=== PATIENT | female | born 1990 | race Caucasian/White ===

== ENCOUNTER 2025-08-07 08:24 | Inpatient (IN) ==
[2025-08-07] MEDS ORDERED: LIDOCAINE 1% LOCAL 20 ML VIAL INFIL PRN (09:36)
[2025-08-07] MEDS ORDERED: OXYTOCIN 30 UNITS/NSS 30 UNITS/500 ML BAG IV PRN (09:36)
--- NOTE | 2025-08-07 09:38 | History & Physical Report ---
Date of Service August 07, 2025 Assessment & Plan (1) Normal labor: Plan admit. Discussed expectant management vs. pitocin now. gbs neg. Wants expectant management now. Discussed consideration of augmentation if not making change in 6 hours. Fetus category one. Desires epidural. anticipate . History of Present Illness Chief Complaint: srom Primary Care Provider: Chloe Stuart MD Patient is a 34yowf with iup at 39 0/7 who presents with srom of clear fluid at 6:45 am. Notes some contractions. no vb. +fm. Patient has had no associated issues and no problem/plans list OB Labs: Blood Type O Positive 01/08/25 Antibody Screen NEGATIVE 01/08/25 Hgb 12.5 g/dl (12.0-16.0) 05/28/25 Hct 36.4 % (37.0-47.0) L 05/28/25 MCV 92.6 fL (80.0-100.0) 01/08/25 Plt Count 250 K/uL (130-400) 01/08/25 Rubella IgG Antibody Immune (Immune) 01/08/25 Treponema pallidum Ab Negative (Negative) 05/28/25 Hep Bs Antigen Negative (Negative) 01/08/25 Hepatitis C Antibody Negative (Negative) 01/08/25 HIV 1&2 Ab/P24 Ag 4thGn Negative (Negative) 01/08/25 Glucose 1 Hr 50 gm 108 mg/dl (70-130) 05/28/25 Maternal Serum AFP 76.7 ng/mL 03/05/25 OB Optional Labs: Chlamydia trachomatis RNA Not Detected (NotDetected) 01/08/25 Neisseria gonorrhoeae RNA Not Detected (NotDetected) 01/08/25 Alpha Fetoprotein Triple Screen SEE NOTE 03/05/25 Labs Reviewed: gbs neg afp neg panorama neg Allergies Allergy/AdvReac Type Severity Reaction Status Date / Time No Known Drug Allergies Allergy Verified 08/05/25 09:50 Home Medications Medication Instructions Recorded Confirmed Type citalopram 20 mg tablet 20 mg PO DAILY #90 tabs 01/01/25 08/05/25 Rx 21-iron fu-folic acid PO 01/01/25 08/05/25 History [ Complete] Patient History Medical History Myocarditis History of chicken pox Human papilloma virus Anxiety and depression IBS (irritable bowel syndrome) Surgical History 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 Denies family history of Ovarian cancer Myocardial infarction Uterine cancer Social History Smoking Status: Never smoker Second Hand Exposure: No; Do You Dip or Chew Tobacco: No; Hx Alcohol Use: No Hx Substance Use: No Preferred Language: Pashto Communication Ability: Effective Visual Impairment: No Limitations Hearing Ability: Normal Remediation Consultant Required: No Beliefs That Will Affect Care: None marital status: marital status details: Ted Colon (31) [phone] Current Living Situation: Spouse Current Living Situation Comment: lives with spouse, dog current occupational status: employed 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, 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 [employer] Feels Safe at Home: Yes Childhood Exposure to Second-Hand Smoke: No Diet: regular caffeine: Yes during the past year weight has: increased > 10 lbs Dental Care, Regularly: Yes Physical Activity Frequency: 3-4 Times per Week Seatbelt Use: always Sunscreen Use: Yes Assistive Devices: None OB History g1--present 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
[2025-08-07 10:06] LABS: Hematocrit (blood only) 34.4 % (37.0-47.0); Hemoglobin 11.7 g/dl (12.0-16.0); Mean Corpuscular Hemoglobin 31.5 pg (25.0-34.0); Mean Corpuscular Volume 92.5 fL (80.0-100.0); Platelet Count 159 K/uL (130-400); RDW Standard Deviation 43.0 fL (36.4-46.3); Red Blood Count 3.72 M/uL (4.20-5.40); White Blood Count 11.11 K/ul (4.8-10.8)
[2025-08-07] MEDS: LACTATED RINGER'S 1,000 ML IV PRN (12:28)
--- NOTE | 2025-08-07 12:53 | Labor Progress Brief Note ---
Date of Service August 07, 2025 Subjective Much more uncomfortable Assessment & Plan (1) Normal labor: Plan doing well. Will get epidural. fetus category one. Admission and Anticipated Discharge Date Admission Date: August 07, 2025 Physical Exam Physical Exam: cx--4/100/-2 toco--q2-4 efm--130s with mod variability, accels to 150s, no decels Results & Data Vital Signs (Past 12 Hours) Vital Signs Temp Pulse Resp BP Pulse Ox 08/07/25 12:29 37.0 C 08/07/25 11:22 62 96 08/07/25 11:18 64 92 08/07/25 11:17 67 95 08/07/25 11:12 96 08/07/25 11:12 60 08/07/25 11:12 61 94 08/07/25 11:07 63 96 08/07/25 11:03 62 93 08/07/25 11:02 64 95 08/07/25 11:01 64 118/81 08/07/25 10:57 60 97 08/07/25 10:53 59 L 94 08/07/25 10:52 62 96 08/07/25 10:47 58 L 96 08/07/25 10:31 55 L 111/70 08/07/25 10:30 37.0 C 08/07/25 08:40 37 C 16 08/07/25 08:36 65 126/87 Coding Level of Care Code None Diagnoses Normal labor O80; Z37.9
--- NOTE | 2025-08-07 13:27 | Anesthesiology Consultation ---
Date of Service August 07, 2025 Assessment & Plan Chart Review Chart Review: Acceptable Risk for Labor Epidural Consults Requested none ASA ASA2 Proposed Anesthesia Anesthesia Type: Labor Epidural Risk / Benefits Reviewed With: PT / POA / Parent / Guardian, Accepts Plan and Informed Consent Obtained History Height/Weight Height: 5 ft 3 in Weight: 77.111 kg Allergies Allergy/AdvReac Type Severity Reaction Status Date / Time No Known Allergies Allergy Verified 08/07/25 10:49 Medications Home Medications Medication Instructions Recorded Confirmed Last Taken citalopram 20 mg tablet 20 mg PO DAILY #90 tabs 01/01/25 08/07/25 08/07/25 07:45 1 tab PO DAILY 08/07/25 08/07/25 08/07/25 07:45 Active Medications Generic Name Dose Route Start Last Admin Trade Name Freq PRN Reason Stop Dose Admin Lactated Ringer's 1,000 mls @ 125 mls/hr 08/07/25 09:36 08/07/25 12:40 Lr IV 08/09/25 09:35 999 mls/hr .Q8H PRN Infusion L&D Protocol Protocol NPO Date Last Intake of Fluids: 08/07/25 Time Last Intake of Fluids: 11:00 Date Last Intake of Solids: 08/07/25 Time Last Intake of Solids: 07:00 Last Intake of Solids Comment: Cereal Past Medical History Medical History Myocarditis History of chicken pox Human papilloma virus Anxiety and depression IBS (irritable bowel syndrome) Exercise / Class Metabolic Activity II 4-5 Yardwork/Stairs/Walk up hill Past Family History Family History Mother Cancer skin Breast cancer, Onset Age: 59 Dyslipidemia Aunt Colorectal cancer, Onset Age: 60 Father Prostate cancer Renal cancer Dyslipidemia Uncle Diabetes Prostate cancer Grandmother (Paternal) Diabetes Grandfather (Paternal) Heart disease Brother No problems noted. 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 Hx of colposcopy with cervical biopsy [place] teeth removed Past Anesthesia History No Hx of Anesthesia Complications and No Family Hx of Anesthesia Complications History of PONV No Hx of PONV and No Hx of Motion Sickness Social History Smoking Status: Never smoker Do You Dip or Chew Tobacco: No Hx Alcohol Use: No Alcohol type: beer and hard liquor Hx Substance Use: No Physical Exam Vital Signs Last Vital Signs Temp 37.0 C 08/07/25 12:29 Pulse 65 08/07/25 13:21 Resp 16 08/07/25 08:40 BP 127/75 08/07/25 13:12 Pulse Ox 100 08/07/25 13:21 ENMT Mouth: no TMJ abnormality Thyromental Distance: > or= 3.5 Finger Breadths Mallampati Class: II Neck normal visual inspection and trachea midline; neck extension not limited Respiratory normal respiratory effort Auscultation: lungs clear to auscultation bilaterally Cardiovascular Rate/Rhythm: regular rate and regular rhythm Heart Sounds: no murmur Musculoskeletal Spine: normal cervical ROM Extremities: full ROM of extremities Neurologic moves all extremities Psychiatric Orientation: alert and oriented x 3 Testing Laboratory Results 08/07/25 09:48
[2025-08-07] MEDS: fentANYL 2 MCG/ML BUPIVacaine 0.125%-NSS 100ML BAG ONE (13:54)
[2025-08-07] MEDS: BUPIVACAINE 0.25% PF 30 ML VIAL ONE (13:54)
[2025-08-07] MEDS ORDERED: LIDOCAINE 2%/EPINEPHRINE 1:200,000 20 ML PF EPI STA (13:57)
[2025-08-07] MEDS ORDERED: NALOXONE HCL 0.4 MG/1 ML VIAL/CARP IV PRN (13:57)
[2025-08-07] MEDS ORDERED: NALOXONE HCL 1 MG in SODIUM CHLORIDE 0.9% 1,000 ML IV PRN (13:57)
[2025-08-07] MEDS ORDERED: BUPIVACAINE 0.25% PF 30 ML VIAL EPI STA (13:57)
[2025-08-07] MEDS ORDERED: BUPIVACAINE 0.25% PF 30 ML VIAL EPI PRN (13:57)
[2025-08-07] MEDS ORDERED: diphenhydrAMINE 50 MG/ML VIAL IV PRN (13:57)
[2025-08-07] MEDS ORDERED: SODIUM CHLORIDE 0.9% PF INJ 10 ML VIAL EPI STA (13:57)
[2025-08-07] MEDS ORDERED: NALBUPHINE HCL INJ 10 MG/ML AMP IV PRN (13:57)
[2025-08-07] MEDS ORDERED: SODIUM CHLORIDE 0.9% PF INJ 10 ML VIAL EPI PRN (13:57)
[2025-08-07] MEDS ORDERED: LIDOCAINE 2% MPF LOCAL 5 ML VIAL EPI PRN (13:57)
[2025-08-07] MEDS ORDERED: ROPIVACAINE 0.5% PF 5 MG/ML 20 ML VIAL EPI PRN (13:57)
[2025-08-07] MEDS: OXYTOCIN 30 UNITS/NSS 30 UNITS/500 ML BAG IV PRN (15:15)
--- NOTE | 2025-08-07 18:57 | Labor Progress Brief Note ---
Date of Service August 07, 2025 Subjective comfortable Assessment & Plan (1) Normal labor: Plan continue current management. fetus category one. anticipate . Admission and Anticipated Discharge Date Admission Date: August 07, 2025 Physical Exam Physical Exam: cx--ant lip/0 toco--q2-4, pit at 4 efm--130s with mod variability, accels to 150s, no decels Results & Data Vital Signs (Past 12 Hours) Vital Signs Temp Pulse Resp BP Pulse Ox 08/07/25 18:49 73 99 08/07/25 18:44 72 99 08/07/25 18:39 72 99 08/07/25 18:34 67 99 08/07/25 18:29 71 100 08/07/25 18:24 66 99 08/07/25 18:19 70 98 08/07/25 18:14 71 99 08/07/25 18:09 67 99 08/07/25 18:04 73 100 08/07/25 18:00 14 08/07/25 18:00 14 08/07/25 17:59 67 100 08/07/25 17:54 65 99 08/07/25 17:49 70 100 08/07/25 17:44 70 100 08/07/25 17:39 63 100 08/07/25 17:34 64 100 08/07/25 17:30 36.9 C 08/07/25 17:29 67 96 08/07/25 17:24 62 99 08/07/25 17:19 70 100 08/07/25 17:16 63 99 08/07/25 17:11 60 99 08/07/25 17:07 65 129/86 08/07/25 17:06 68 100 08/07/25 17:01 67 98 08/07/25 17:00 14 08/07/25 17:00 14 08/07/25 16:56 64 98 08/07/25 16:54 60 100/55 L 08/07/25 16:51 66 99 08/07/25 16:46 61 98 08/07/25 16:41 67 98 08/07/25 16:38 66 123/71 08/07/25 16:36 64 99 08/07/25 16:31 70 98 08/07/25 16:26 70 97 08/07/25 16:21 63 100/58 L 97 08/07/25 16:16 67 99 08/07/25 16:11 64 97 08/07/25 16:06 64 99/58 L 97 08/07/25 16:01 58 L 96 08/07/25 16:00 61 14 97/55 L 08/07/25 15:56 64 98 08/07/25 15:52 59 L 107/71 08/07/25 15:51 60 97 08/07/25 15:46 63 98 08/07/25 15:45 37.0 C 08/07/25 15:41 66 97 08/07/25 15:36 63 102/65 97 08/07/25 15:31 65 97 08/07/25 15:26 65 96 08/07/25 15:22 60 104/64 08/07/25 15:21 62 97 08/07/25 15:16 62 98 08/07/25 15:11 63 97 08/07/25 15:08 68 108/55 L 08/07/25 15:06 73 97 08/07/25 15:01 63 97 08/07/25 15:00 14 08/07/25 15:00 14 08/07/25 14:56 68 96 08/07/25 14:52 60 108/63 08/07/25 14:51 61 96 08/07/25 14:46 65 95 08/07/25 14:45 14 08/07/25 14:45 14 08/07/25 14:41 70 96 08/07/25 14:37 72 125/80 08/07/25 14:36 70 98 08/07/25 14:31 73 97 08/07/25 14:30 14 08/07/25 14:30 14 08/07/25 14:26 70 97 08/07/25 14:21 67 114/73 96 08/07/25 14:20 37.1 C 08/07/25 14:16 71 97 08/07/25 14:15 14 08/07/25 14:15 14 08/07/25 14:11 65 97 08/07/25 14:06 97 08/07/25 14:06 65 08/07/25 14:06 65 113/73 08/07/25 14:03 67 114/72 08/07/25 14:01 63 97 08/07/25 14:00 63 16 111/72 08/07/25 13:57 64 16 114/75 08/07/25 13:56 64 97 08/07/25 13:54 61 14 118/75 08/07/25 13:51 62 117/73 97 08/07/25 13:49 14 08/07/25 13:49 14 08/07/25 13:48 75 110/71 08/07/25 13:46 82 96 08/07/25 13:45 72 116/72 08/07/25 13:41 90 98 08/07/25 13:36 87 98 08/07/25 13:31 89 100 08/07/25 13:26 77 100 08/07/25 13:21 65 100 08/07/25 13:16 62 97 08/07/25 13:12 64 127/75 08/07/25 13:11 63 100 08/07/25 12:29 37.0 C 08/07/25 11:22 62 96 08/07/25 11:18 64 92 08/07/25 11:17 67 95 08/07/25 11:12 96 08/07/25 11:12 60 08/07/25 11:12 61 94 08/07/25 11:07 63 96 08/07/25 11:03 62 93 08/07/25 11:02 64 95 08/07/25 11:01 64 118/81 08/07/25 10:57 60 97 08/07/25 10:53 59 L 94 08/07/25 10:52 62 96 08/07/25 10:47 58 L 96 08/07/25 10:31 55 L 111/70 08/07/25 10:30 37.0 C 08/07/25 08:40 37 C 16 08/07/25 08:36 65 126/87 Coding Level of Care Code None Diagnoses Normal labor O80; Z37.9
[2025-08-07] MEDS: ONDANSETRON INJ 2 MG/ML 2 ML VIAL IV PRN (19:51)
[2025-08-07] MEDS: fentANYL 2 MCG/ML BUPIVacaine 0.125%-NSS 100ML BAG EPI PRN (20:34)
--- NOTE | 2025-08-08 00:06 | Labor Progress Brief Note ---
Date of Service August 08, 2025 Subjective pushing with good effort Assessment & Plan (1) Normal labor: (2) Failure of descent in labor, delivered, current hospitalization: Plan Discussed pros/cons of further labor. Discussed not at a point I can assist with a vacuum and with the significant caput, concern about application. Can continue to push but have been in second stage for close to 4 hours wtih 2+ in active pushing and with a good 30 minutes with me without descent of the vertex b/y +2. She is agreeable to c/s. consent reviewed and signed. Admission and Anticipated Discharge Date Admission Date: August 07, 2025 Physical Exam Physical Exam: cx--c/c/+2, caput is +3 with pushing, large toco--q2-4min, pit at 20 efm--120s with mod variability, accels present, no decels Results & Data Vital Signs (Past 12 Hours) Vital Signs Temp Pulse Resp BP Pulse Ox 08/08/25 00:00 87 88 L 08/07/25 23:55 107 H 96 08/07/25 23:52 106 H 84 L 08/07/25 23:50 75 98 08/07/25 23:45 70 98 08/07/25 23:41 78 108/74 08/07/25 23:40 82 98 08/07/25 23:35 72 98 08/07/25 23:30 68 98 08/07/25 23:26 76 103/71 08/07/25 23:25 74 98 08/07/25 23:20 72 98 08/07/25 23:15 88 93 08/07/25 23:11 76 110/68 08/07/25 23:09 69 98 08/07/25 23:04 73 96 08/07/25 23:00 20 08/07/25 23:00 37.5 C 20 08/07/25 22:59 86 97 08/07/25 22:57 77 119/79 08/07/25 22:55 87 88 L 08/07/25 22:54 103 H 95 08/07/25 22:49 72 97 08/07/25 22:47 82 88 L 08/07/25 22:44 77 98 08/07/25 22:41 67 130/83 08/07/25 22:39 69 98 08/07/25 22:34 74 98 08/07/25 22:29 76 94 08/07/25 22:27 74 108/57 L 08/07/25 22:24 76 96 08/07/25 22:19 70 95 08/07/25 22:14 74 97 08/07/25 22:11 75 108/59 L 08/07/25 22:09 75 96 08/07/25 22:08 75 94 08/07/25 22:04 74 94 08/07/25 22:03 75 94 08/07/25 21:59 73 95 08/07/25 21:58 75 94 08/07/25 21:56 71 98/56 L 08/07/25 21:54 72 95 08/07/25 21:49 72 96 08/07/25 21:44 76 96 08/07/25 21:41 70 97/53 L 08/07/25 21:39 72 97 08/07/25 21:35 18 08/07/25 21:35 37.0 C 18 08/07/25 21:34 82 98 08/07/25 21:31 88 92 08/07/25 21:29 77 98 08/07/25 21:27 80 105/60 08/07/25 21:24 76 98 08/07/25 21:19 85 99 08/07/25 21:14 98 08/07/25 21:14 85 93 08/07/25 21:12 86 116/59 L 08/07/25 21:09 79 97 08/07/25 21:07 94 H 94 08/07/25 21:04 78 99 08/07/25 20:59 80 85 L 08/07/25 20:54 83 98 08/07/25 20:53 76 89 L 08/07/25 20:49 70 97 08/07/25 20:47 79 79 L 08/07/25 20:44 84 99 08/07/25 20:42 96 H 129/73 08/07/25 20:39 75 96 08/07/25 20:37 88 91 08/07/25 20:34 83 97 08/07/25 20:31 87 91 08/07/25 20:29 90 99 08/07/25 20:27 90 122/75 08/07/25 20:24 89 99 08/07/25 20:19 80 99 08/07/25 20:14 78 99 08/07/25 20:11 70 128/81 08/07/25 20:09 75 99 08/07/25 20:04 78 100 08/07/25 19:59 70 98 08/07/25 19:57 76 119/74 08/07/25 19:54 77 99 08/07/25 19:52 77 94 08/07/25 19:49 71 99 08/07/25 19:44 70 98 08/07/25 19:42 75 115/75 08/07/25 19:39 71 99 08/07/25 19:34 80 100 08/07/25 19:29 82 99 08/07/25 19:27 78 148/79 H 08/07/25 19:24 83 99 08/07/25 19:19 76 99 08/07/25 19:14 71 99 08/07/25 19:11 68 139/81 08/07/25 19:10 36.9 C 18 08/07/25 19:10 18 08/07/25 19:10 36.9 C 18 08/07/25 19:09 68 100 08/07/25 19:04 73 99 08/07/25 18:59 67 98 08/07/25 18:54 68 99 08/07/25 18:49 73 99 08/07/25 18:44 72 99 08/07/25 18:39 72 99 08/07/25 18:34 67 99 08/07/25 18:29 71 100 08/07/25 18:24 66 99 08/07/25 18:19 70 98 08/07/25 18:14 71 99 08/07/25 18:09 67 99 08/07/25 18:04 73 100 08/07/25 18:00 14 08/07/25 18:00 14 08/07/25 17:59 67 100 08/07/25 17:54 65 99 08/07/25 17:49 70 100 08/07/25 17:44 70 100 08/07/25 17:39 63 100 08/07/25 17:34 64 100 08/07/25 17:30 36.9 C 08/07/25 17:29 67 96 08/07/25 17:24 62 99 08/07/25 17:19 70 100 08/07/25 17:16 63 99 08/07/25 17:11 60 99 08/07/25 17:07 65 129/86 08/07/25 17:06 68 100 08/07/25 17:01 67 98 08/07/25 17:00 14 08/07/25 17:00 14 08/07/25 16:56 64 98 08/07/25 16:54 60 100/55 L 08/07/25 16:51 66 99 08/07/25 16:46 61 98 08/07/25 16:41 67 98 08/07/25 16:38 66 123/71 08/07/25 16:36 64 99 08/07/25 16:31 70 98 08/07/25 16:26 70 97 08/07/25 16:21 63 100/58 L 97 08/07/25 16:16 67 99 08/07/25 16:11 64 97 08/07/25 16:06 64 99/58 L 97 08/07/25 16:01 58 L 96 08/07/25 16:00 61 14 97/55 L 08/07/25 15:56 64 98 08/07/25 15:52 59 L 107/71 08/07/25 15:51 60 97 08/07/25 15:46 63 98 08/07/25 15:45 37.0 C 08/07/25 15:41 66 97 08/07/25 15:36 63 102/65 97 08/07/25 15:31 65 97 08/07/25 15:26 65 96 08/07/25 15:22 60 104/64 08/07/25 15:21 62 97 08/07/25 15:16 62 98 08/07/25 15:11 63 97 08/07/25 15:08 68 108/55 L 08/07/25 15:06 73 97 08/07/25 15:01 63 97 08/07/25 15:00 14 08/07/25 15:00 14 08/07/25 14:56 68 96 08/07/25 14:52 60 108/63 08/07/25 14:51 61 96 08/07/25 14:46 65 95 08/07/25 14:45 14 08/07/25 14:45 14 08/07/25 14:41 70 96 08/07/25 14:37 72 125/80 08/07/25 14:36 70 98 08/07/25 14:31 73 97 08/07/25 14:30 14 08/07/25 14:30 14 08/07/25 14:26 70 97 08/07/25 14:21 67 114/73 96 08/07/25 14:20 37.1 C 08/07/25 14:16 71 97 08/07/25 14:15 14 08/07/25 14:15 14 08/07/25 14:11 65 97 08/07/25 14:06 97 08/07/25 14:06 65 08/07/25 14:06 65 113/73 08/07/25 14:03 67 114/72 08/07/25 14:01 63 97 08/07/25 14:00 63 16 111/72 08/07/25 13:57 64 16 114/75 08/07/25 13:56 64 97 08/07/25 13:54 61 14 118/75 08/07/25 13:51 62 117/73 97 08/07/25 13:49 14 08/07/25 13:49 14 08/07/25 13:48 75 110/71 08/07/25 13:46 82 96 08/07/25 13:45 72 116/72 08/07/25 13:41 90 98 08/07/25 13:36 87 98 08/07/25 13:31 89 100 08/07/25 13:26 77 100 08/07/25 13:21 65 100 08/07/25 13:16 62 97 08/07/25 13:12 64 127/75 08/07/25 13:11 63 100 08/07/25 12:29 37.0 C Coding Level of Care Code None Diagnoses Normal labor O80; Z37.9 Failure of descent in labor, delivered, current hospitalization O62.2
[2025-08-08] MEDS: CITRIC ACID/SODIUM CITRATE 15 ML UDC PO SCH (00:35)
[2025-08-08] MEDS: ACETAMINOPHEN 500 MG TAB PO SCH (00:35)
[2025-08-08] MEDS ORDERED: LIDOCAINE 2%/EPINEPHRINE 1:200,000 20 ML PF ONE (00:37)
[2025-08-08] MEDS: AZITHROMYCIN 500 MG/255 ML BAG IV SCH (00:41)
[2025-08-08] MEDS ORDERED: PHENYLEPHRINE 100MCG/ML 5ML SYR ONE (01:03)
[2025-08-08] MEDS ORDERED: OXYTOCIN 10 UNITS/ML VIAL ONE (01:03)
[2025-08-08] MEDS ORDERED: LACTATED RINGER'S 1,000 ML IV SCH (01:15)
[2025-08-08] MEDS ORDERED: MoRPHine SULFATE PF 1 MG/ML 10 ML AMP/VIAL ONE (01:30)
[2025-08-08 01:32] LABS: Base Excess Cord Arterial Bld -2.8 mEq/L (-9-1.8); CO2 Cord Arterial Blood 56 mmHg (39.1-73.5); HCO3 Cord Arterial Blood 25 mmol/L (19.7-28.5); PO2 Cord Arterial Blood < 20 mmHg (4.1-31.7); pH Cord Arterial Blood 7.26 (7.1-7.38)
[2025-08-08 01:34] LABS: Base Excess Cord Venous Blood -2.3 mEq/L (-7.7-1.9); Cord Venous Blood PO2 < 20 mmHg (14.1-43.3); O2 Saturation Cord Venous Bld < 60.0 % (<68)
[2025-08-08] MEDS ORDERED: HYDROCORTISONE ACETATE 25 MG SUPP PR PRN (01:44)
[2025-08-08] MEDS ORDERED: BENZOCAINE 20% SPRY 85 APPLN/85 GM CAN EXT PRN (01:44)
[2025-08-08] MEDS ORDERED: CALCIUM CARBONATE 500 MG CHEWABLE TAB PO PRN (01:44)
[2025-08-08] MEDS ORDERED: SENNA 8.6 MG TAB PO PRN (01:44)
--- NOTE | 2025-08-08 01:50 | Anesthesia Procedure Note ---
Date of Service August 08, 2025 Anesthesia Post Epidural Note Vital Signs Vital Signs: Temp Pulse Resp BP Pulse Ox 37.5 C 75 20 99/58 L 97 08/07/25 23:00 08/08/25 01:46 08/07/25 23:00 08/08/25 01:41 08/08/25 01:46 Pain Intensity Lower Abdomen: Pain Intensity: 2 Notes Mental Status: alert / awake / arousable Nausea / Vomiting: adequately controlled Pain: adequately controlled Airway Patency, RR, SpO2: stable & adequate BP & HR: stable & adequate Hydration State: stable & adequate Neuraxial Anesthesia: was administered and sensory block is resolving Anesthetic Complications: no major complications apparent and Pt Satisfied with anesthetic care Epidural: Removed without complications and With tip intact
--- NOTE | 2025-08-08 01:50 | Operative Report ---
PG Post Operative Report Pre & Post Diagnosis Operation Date: 08/08/25 00:30 Pre-Op Diagnosis: at 39 weeks Failure to descend Post-Op Diagnosis: at 39 weeks Failure to descend I identified the patient and participated in the time-out.: Yes Procedure Operation Date: 08/08/25 00:30 Actual Procedures p Primary low transverse Section. Live girl @ 0100 - Shayna Alfonso MD, FACOG Surgeon Shayna Alfonso MD, FACOG Tool Maker Apprentice Ugo Douglas RN Estimated Blood Loss 543 Findings Consistent with Post-Op Diagnosis viable female infant, direct OP, apgars 7/8. Normal uterus/tubes/ovs Fluids ivf--800cc uop--50cc, concentrated and blood tinged Specimens none Drains perry Anesthesia Type Labor Epidural Complications none Disposition Accompanied Patient To Recovery: No Disposition: L&D Indications 24yowf with iup at 39 weeks, srom. progressed and pushed for over two hours with no descent Description of Procedure The patient was taken to the operating room where she was identified verbally and by bracelet. She was then placed in the supine position with a leftward tilt. A Perry catheter had been placed sterilely. the epidural had been dosed. the patient was prepped and draped in a normal standard fashion. the anesthetic was tested and found to be adequate. A time-out was held, identifying correct patient, procedure, positioning and preoperative antibiotics. There were no concerns. A Pfannenstiel skin incision was made with a knife and taken down to the underlying layer of fascia with the knife and Bovie electrocautery. Bleeding was attended to with the Bovie. The fascia was incised in the midline with the knife and taken out laterally with scissors. The superior edge of the fascial incision was grasped, elevated and the underlying layer of rectus muscle was taken off bluntly and with scissors. In a similar fashion, the inferior edge of the fascial incision was grasped, elevated and the underlying layer of rectus muscle was taken off bluntly and with scissors. The muscles were bluntly in the midline. The peritoneum was entered bluntly. The incision was then stretched. The bladder blade was placed. The vesicouterine peritoneum was identified, entered with scissors and taken out laterally with scissors. The bladder flap was created digitally A hysterotomy incision was scored with a knife and the incision was stretched superiorly and inferiorly with the water gas operator's fingers. Fluid was clear. The operators hand was placed into the incision and the head was delivered atraumatically. The baby was in direct op position and wedged into the pelvis. No nuchal cord. The rest of the infant was then delivered without difficulty. The nose and mouth were again bulb suctioned. The cord was clamped and cut and the infant was then handed off to the awaiting sailmaker for drying and attention. Cord blood and segment were obtained. Apgars 7/8. The placenta was Manually extracted. The uterus was exteriorized and cleared of all clot and debris with moistened laparotomy sponges. The hysterotomy incision was identified with T-clamps was repaired in two layers, the first in a running locked layer, the second in an imbricating layer. There were no extensions. Hemostasis was noted to be good. Posterior cul-de-sac was irrigated and cleared of all clot and debris. The hysterotomy incision was again inspected and found to be hemostatic. the uterus was reinteriorized. Hysterotomy incision was again inspected and found to be hemostatic. The fascia was then reapproximated with 0 Vicryl starting at the edges and meeting in the midline. The subcuticular tissues were copiously irrigated and bleeding was attended to with cautery. The skin was then closed with 4-0 Vicryl in a subcuticular fashion. A ll sponge ,lap and needle counts were correct x 2. The patient tolerated the procedure well and she was taken to recovery in stable condition. I attest to the content of the Intraoperative Record and any orders documented therein. Any exceptions are noted below. OB Procedure Charges 91473
[2025-08-08] MEDS: OXYTOCIN 20 UNITS/1002ML LR IV ONE (01:56)
[2025-08-08] MEDS: DIPHTHER/TETAN/PERTUS Vaccine (Tdap, Adol/Adult) 0.5mL IM ONE (02:19)
[2025-08-08] MEDS: OXYTOCIN 20 UNITS/LR 1,002 ML IV SCH (02:19)
[2025-08-08] MEDS: KETOROLAC 30 MG/ML VIAL IV SCH (02:20)
[2025-08-08] MEDS ORDERED: NALBUPHINE HCL INJ 10 MG/ML AMP IV PRN (03:51)
[2025-08-08] MEDS ORDERED: KETOROLAC 30 MG/ML VIAL IV PRN (03:51)
[2025-08-08] MEDS ORDERED: ACETAMINOPHEN 1,000 MG/100 ML VIAL IV PRN (03:51)
[2025-08-08] MEDS ORDERED: NALOXONE HCL 1 MG in SODIUM CHLORIDE 0.9% 1,000 ML IV PRN (03:51)
[2025-08-08] MEDS ORDERED: MoRPHine SULFATE 4 MG/ML 1 ML CARP\\VIAL IV PRN (03:51)
[2025-08-08] MEDS ORDERED: ONDANSETRON INJ 2 MG/ML 2 ML VIAL IV PRN ×2 (03:51→21:51)
[2025-08-08] MEDS ORDERED: diphenhydrAMINE 50 MG/ML VIAL IV PRN ×2 (03:51→21:51)
[2025-08-08] MEDS ORDERED: MoRPHine SULFATE PF 1 MG/ML 10 ML AMP/VIAL INT SPINAL ONE (03:51)
[2025-08-08] MEDS ORDERED: LACTATED RINGER'S 500 ML IV PRN (03:51)
[2025-08-08] MEDS ORDERED: NALOXONE HCL 0.08 MG in SYRINGE 1.8 ML IV PRN (03:51)
[2025-08-08] MEDS ORDERED: HYDROmorphone INJ 0.5 MG/0.5 ML SYR IV PRN ×2 (03:51→21:51)
[2025-08-08] MEDS ORDERED: PROMETHAZINE 6.25 MG/50.25 ML BAG IV PRN (03:51)
[2025-08-08] MEDS ORDERED: NALOXONE HCL 0.4 MG/1 ML VIAL/CARP IV PRN (03:51)
[2025-08-08] MEDS ORDERED: MEPERIDINE HCL 25 MG/ML CARP/VIAL IV PRN (03:51)
[2025-08-08] MEDS ORDERED: NO NARCOTICS OR SEDATIVES SCH (04:00)
[2025-08-08] MEDS ORDERED: DC INTRASPINAL MORPHINE SCH (04:00)
[2025-08-08] MEDS: LIDOCAINE 2%/EPINEPHRINE 1:200,000 20 ML PF ONE (04:29)
[2025-08-08] MEDS: SODIUM CHLORIDE 0.9% PF INJ 10 ML VIAL ONE (04:30)
[2025-08-08] MEDS: LACTATED RINGER'S 1,000 ML IV SCH ×2 (04:30)
--- NOTE | 2025-08-08 05:13 | Anesthesiology Progress Note ---
Date of Service August 08, 2025 Anesthesia Post Procedure Vital Signs Vital Signs: Temp Pulse Resp BP Pulse Ox 08/08/25 03:46 75 96 08/08/25 03:41 37.1 C 18 08/08/25 03:41 71 110/68 97 08/08/25 03:36 66 97 08/08/25 03:32 69 117/75 08/08/25 03:31 70 96 08/08/25 03:26 87 96 08/08/25 03:21 69 117/72 97 08/08/25 03:16 70 97 08/08/25 03:12 68 114/63 08/08/25 03:11 37.1 C 18 08/08/25 03:11 69 97 08/08/25 03:06 70 96 08/08/25 03:01 96 08/08/25 03:01 74 08/08/25 03:01 72 106/59 L 08/08/25 02:56 68 97 08/08/25 02:54 73 114/64 08/08/25 02:51 77 97 08/08/25 02:46 78 97 08/08/25 02:41 37.1 C 18 08/08/25 02:41 63 118/72 98 08/08/25 02:36 37.1 C 18 08/08/25 02:36 70 98 08/08/25 02:31 37.1 C 18 08/08/25 02:31 67 118/73 98 08/08/25 02:26 66 98 08/08/25 02:21 37.1 C 18 08/08/25 02:21 99 08/08/25 02:21 66 08/08/25 02:21 66 121/75 08/08/25 02:16 64 96 08/08/25 02:11 37.1 C 18 08/08/25 02:11 65 117/70 98 08/08/25 02:06 66 96 08/08/25 02:02 65 112/68 08/08/25 02:01 37.1 C 18 08/08/25 02:01 66 97 08/08/25 01:56 67 97 08/08/25 01:51 37.1 C 18 08/08/25 01:51 92 08/08/25 01:51 77 08/08/25 01:51 76 94/54 L 91 08/08/25 01:46 75 97 08/08/25 01:41 37.1 C 18 08/08/25 01:41 75 99/58 L 97 08/08/25 00:40 78 98 08/08/25 00:35 92 H 96 08/08/25 00:30 71 96 08/08/25 00:25 120 H 96 08/08/25 00:20 77 97 08/08/25 00:15 84 94 08/08/25 00:10 83 96 08/08/25 00:05 94 H 96 08/08/25 00:00 87 88 L 08/07/25 23:55 107 H 96 08/07/25 23:52 106 H 84 L 08/07/25 23:50 75 98 08/07/25 23:45 70 98 08/07/25 23:41 78 108/74 08/07/25 23:40 82 98 08/07/25 23:35 72 98 08/07/25 23:30 68 98 08/07/25 23:26 76 103/71 08/07/25 23:25 74 98 08/07/25 23:20 72 98 08/07/25 23:15 88 93 08/07/25 23:11 76 110/68 08/07/25 23:09 69 98 08/07/25 23:04 73 96 08/07/25 23:00 20 08/07/25 23:00 37.5 C 20 08/07/25 22:59 86 97 08/07/25 22:57 77 119/79 08/07/25 22:55 87 88 L 08/07/25 22:54 103 H 95 08/07/25 22:49 72 97 08/07/25 22:47 82 88 L 08/07/25 22:44 77 98 08/07/25 22:41 67 130/83 08/07/25 22:39 69 98 08/07/25 22:34 74 98 08/07/25 22:29 76 94 08/07/25 22:27 74 108/57 L 08/07/25 22:24 76 96 08/07/25 22:19 70 95 08/07/25 22:14 74 97 08/07/25 22:11 75 108/59 L 08/07/25 22:09 75 96 08/07/25 22:08 75 94 08/07/25 22:04 74 94 08/07/25 22:03 75 94 08/07/25 21:59 73 95 08/07/25 21:58 75 94 08/07/25 21:56 71 98/56 L 08/07/25 21:54 72 95 08/07/25 21:49 72 96 08/07/25 21:44 76 96 08/07/25 21:41 70 97/53 L 08/07/25 21:39 72 97 08/07/25 21:35 18 08/07/25 21:35 37.0 C 18 08/07/25 21:34 82 98 08/07/25 21:31 88 92 08/07/25 21:29 77 98 08/07/25 21:27 80 105/60 08/07/25 21:24 76 98 08/07/25 21:19 85 99 08/07/25 21:14 98 08/07/25 21:14 85 93 08/07/25 21:12 86 116/59 L 08/07/25 21:09 79 97 08/07/25 21:07 94 H 94 08/07/25 21:04 78 99 08/07/25 20:59 80 85 L 08/07/25 20:54 83 98 08/07/25 20:53 76 89 L 08/07/25 20:49 70 97 08/07/25 20:47 79 79 L 08/07/25 20:44 84 99 08/07/25 20:42 96 H 129/73 08/07/25 20:39 75 96 08/07/25 20:37 88 91 08/07/25 20:34 83 97 08/07/25 20:31 87 91 08/07/25 20:29 90 99 08/07/25 20:27 90 122/75 08/07/25 20:24 89 99 08/07/25 20:19 80 99 08/07/25 20:14 78 99 08/07/25 20:11 70 128/81 08/07/25 20:09 75 99 08/07/25 20:04 78 100 08/07/25 19:59 70 98 08/07/25 19:57 76 119/74 08/07/25 19:54 77 99 08/07/25 19:52 77 94 08/07/25 19:49 71 99 08/07/25 19:44 70 98 08/07/25 19:42 75 115/75 08/07/25 19:39 71 99 08/07/25 19:34 80 100 08/07/25 19:29 82 99 08/07/25 19:27 78 148/79 H 08/07/25 19:24 83 99 08/07/25 19:19 76 99 08/07/25 19:14 71 99 08/07/25 19:11 68 139/81 08/07/25 19:10 36.9 C 18 08/07/25 19:10 18 08/07/25 19:10 36.9 C 18 08/07/25 19:09 68 100 08/07/25 19:04 73 99 08/07/25 18:59 67 98 08/07/25 18:54 68 99 08/07/25 18:49 73 99 08/07/25 18:44 72 99 08/07/25 18:39 72 99 08/07/25 18:34 67 99 08/07/25 18:29 71 100 08/07/25 18:24 66 99 08/07/25 18:19 70 98 08/07/25 18:14 71 99 08/07/25 18:09 67 99 08/07/25 18:04 73 100 08/07/25 18:00 14 08/07/25 18:00 14 08/07/25 17:59 67 100 08/07/25 17:54 65 99 08/07/25 17:49 70 100 08/07/25 17:44 70 100 08/07/25 17:39 63 100 08/07/25 17:34 64 100 08/07/25 17:30 36.9 C 08/07/25 17:29 67 96 08/07/25 17:24 62 99 08/07/25 17:19 70 100 08/07/25 17:16 63 99 08/07/25 17:11 60 99 08/07/25 17:07 65 129/86 08/07/25 17:06 68 100 08/07/25 17:01 67 98 08/07/25 17:00 14 08/07/25 17:00 14 08/07/25 16:56 64 98 08/07/25 16:54 60 100/55 L 08/07/25 16:51 66 99 08/07/25 16:46 61 98 08/07/25 16:41 67 98 08/07/25 16:38 66 123/71 08/07/25 16:36 64 99 08/07/25 16:31 70 98 08/07/25 16:26 70 97 08/07/25 16:21 63 100/58 L 97 08/07/25 16:16 67 99 08/07/25 16:11 64 97 08/07/25 16:06 64 99/58 L 97 08/07/25 16:01 58 L 96 08/07/25 16:00 61 14 97/55 L 08/07/25 15:56 64 98 08/07/25 15:52 59 L 107/71 08/07/25 15:51 60 97 08/07/25 15:46 63 98 08/07/25 15:45 37.0 C 08/07/25 15:41 66 97 08/07/25 15:36 63 102/65 97 08/07/25 15:31 65 97 08/07/25 15:26 65 96 08/07/25 15:22 60 104/64 08/07/25 15:21 62 97 08/07/25 15:16 62 98 08/07/25 15:11 63 97 08/07/25 15:08 68 108/55 L 08/07/25 15:06 73 97 08/07/25 15:01 63 97 08/07/25 15:00 14 08/07/25 15:00 14 08/07/25 14:56 68 96 08/07/25 14:52 60 108/63 08/07/25 14:51 61 96 08/07/25 14:46 65 95 08/07/25 14:45 14 08/07/25 14:45 14 08/07/25 14:41 70 96 08/07/25 14:37 72 125/80 08/07/25 14:36 70 98 08/07/25 14:31 73 97 08/07/25 14:30 14 08/07/25 14:30 14 08/07/25 14:26 70 97 08/07/25 14:21 67 114/73 96 08/07/25 14:20 37.1 C 08/07/25 14:16 71 97 08/07/25 14:15 14 08/07/25 14:15 14 08/07/25 14:11 65 97 08/07/25 14:06 97 08/07/25 14:06 65 08/07/25 14:06 65 113/73 08/07/25 14:03 67 114/72 08/07/25 14:01 63 97 08/07/25 14:00 63 16 111/72 08/07/25 13:57 64 16 114/75 08/07/25 13:56 64 97 08/07/25 13:54 61 14 118/75 08/07/25 13:51 62 117/73 97 08/07/25 13:49 14 08/07/25 13:49 14 08/07/25 13:48 75 110/71 08/07/25 13:46 82 96 08/07/25 13:45 72 116/72 08/07/25 13:41 90 98 08/07/25 13:36 87 98 08/07/25 13:31 89 100 08/07/25 13:26 77 100 08/07/25 13:21 65 100 08/07/25 13:16 62 97 08/07/25 13:12 64 127/75 08/07/25 13:11 63 100 08/07/25 12:29 37.0 C 08/07/25 11:22 62 96 08/07/25 11:18 64 92 08/07/25 11:17 67 95 08/07/25 11:12 96 08/07/25 11:12 60 08/07/25 11:12 61 94 08/07/25 11:07 63 96 08/07/25 11:03 62 93 08/07/25 11:02 64 95 08/07/25 11:01 64 118/81 08/07/25 10:57 60 97 08/07/25 10:53 59 L 94 08/07/25 10:52 62 96 08/07/25 10:47 58 L 96 08/07/25 10:31 55 L 111/70 08/07/25 10:30 37.0 C 08/07/25 08:40 37 C 16 08/07/25 08:36 65 126/87 Pain Intensity Lower Abdomen: Pain Intensity: 4 Transfer of Care Handoff Completed per policy Notes Mental Status: alert / awake / arousable and participated in evaluation Nausea / Vomiting: adequately controlled Pain: adequately controlled Airway Patency, RR, SpO2: stable & adequate BP & HR: stable & adequate Hydration State: stable & adequate Neuraxial Anesthesia: was administered and sensory block is resolving Anesthetic Complications: no major complications apparent and Pt Satisfied with anesthetic care
[2025-08-08] MEDS: DOCUSATE SODIUM 100 MG CAP PO SCH (07:29)
[2025-08-08] MEDS: SIMETHICONE 80 MG CHEW PO SCH (07:29)
[2025-08-08] MEDS: CITALOPRAM 20 MG TAB PO SCH (07:29)
[2025-08-08] MEDS: ACETAMINOPHEN 325 MG TAB PO SCH (07:29)
[2025-08-08] MEDS: FERROUS SULFATE 325 MG TAB PO SCH (07:36)
[2025-08-08] MEDS: PRENATAL VITAMIN 1 TAB PO SCH (07:36)
[2025-08-08] MEDS: LACTATED RINGER'S 1,000 ML IV ONE (08:15)
[2025-08-08] MEDS ORDERED: PROMETHAZINE 12.5 MG/50.5 ML BAG IV PRN (21:51)
[2025-08-08] MEDS ORDERED: diphenhydrAMINE Capsule 25 MG CAP PO PRN (21:51)
[2025-08-08] MEDS: SODIUM CHLORIDE 0.9% 1,000 ML IV SCH (22:24)
[2025-08-09] MEDS ORDERED: KETOROLAC 30 MG/ML VIAL IV PRN (01:42)
[2025-08-09] MEDS: IBUPROFEN 600 MG TAB PO SCH (02:00)
[2025-08-09 06:24] LABS: Hematocrit (blood only) 26.3 % (37.0-47.0); Hemoglobin 8.7 g/dl (12.0-16.0); Immature Granulocytes # (auto) 0.10 K/uL (0.01-0.20); Immature Granulocytes % (auto) 0.8 %; Mean Corpuscular Hemoglobin 32.3 pg (25.0-34.0); Mean Corpuscular Volume 97.8 fL (80.0-100.0); Platelet Count 121 K/uL (130-400); RDW Standard Deviation 47.8 fL (36.4-46.3); Red Blood Count 2.69 M/uL (4.20-5.40); White Blood Count 12.93 K/ul (4.8-10.8)
--- NOTE | 2025-08-09 07:17 | Obstetrical Progress Note ---
Date of Service August 09, 2025 Assessment & Plan (1) Failure of descent in labor, delivered, current hospitalization: Plan Doing well. continue routine pp/pod care. Day #:: 2 Subjective Ambulation: ambulating normally Voiding: no voiding problems Passing Gas:: Yes Diet Tolerance:: regular diet Lochia:: Small Feeding Type:: breast feeding Pain controlled Physical Exam Cardiovascular Extremities: + edema (tr); no calf tenderness Gastrointestinal (Abdomen) soft, nt, nd, ff/nt at u incision c/d/i Psychiatric A+Ox3, euthymic affect Results & Data Vital Signs (Past 12 Hours) Vital Signs Temp Pulse Resp BP Pulse Ox O2 Del Method 08/09/25 02:00 36.6 C 68 16 109/71 96 Room Air 08/08/25 22:00 16 96 08/08/25 21:00 16 97 08/08/25 20:15 36.6 C 68 18 120/79 98 Room Air 08/08/25 20:00 16 99
[2025-08-09 23:31] VITALS: RESP 16
[2025-08-10 06:46] LABS: Hematocrit (blood only) 26.4 % (37.0-47.0); Hemoglobin 8.5 g/dl (12.0-16.0)
--- NOTE | 2025-08-10 07:39 | Obstetrical Progress Note ---
Date of Service August 10, 2025 Assessment & Plan (1) care and examination: Plan: 34yo post-op day 2 s/p section Fells well today. Vital signs stable Continue post- care Encourage ambulation and Pain controlled with Ibuprofen, Tylenol Vitals and Hgb stable Bowel regimen as needed Discharge home today, follow up with OB provider in 6 weeks. Admission and Anticipated Discharge Date Admission Date: August 07, 2025 Supervising Physician Co-Signing Physician Notes Patient seen with resident and agree with the above findings plan. Stable for discharge as preferred Subjective 34yo post-op day 2 s/p section Ambulation: Ambulating normally Voiding: No voiding problems Passing Gas:: Yes Diet Tolerance:: regular diet Lochia:: Small Feeding Type:: Current Pain Level: 3/10 controlled with Tylenol, Ibuprofen Resting comfortably this AM in NAD. Denies DOUGLASS, CP, SOB, N/V/D, LE pain/swelling. Physical Exam Physical Exam: General: patient resting comfortably, NAD, non-toxic in appearance, answers questions appropriately Skin: warm, dry, intact Heart: S1/S2 heard, regular, no m/r/g Lungs: equal air entry bilaterally, no rales/rhonchi/wheezes Abd: Normoactive BS, soft, NT/ND, uterine fundus firm below umbilicus, incision clean, dry, and intact Ext: warm, no clubbing/cyanosis or edema, Tosin's neg Neuro: nonfocal, patient AAOx4, speech intact, no facial droop, moving all extremities on command Results & Data Vital Signs (Past 12 Hours) Vital Signs Temp Pulse Resp BP Pulse Ox O2 Del Method 08/09/25 23:30 36.4 C L 73 16 125/80 95 Room Air 08/09/25 20:16 36.5 C 82 18 124/77 97 Room Air Resident Activity Tracking Resident Involvement: Resident Care Provided Care Provided: OB Delivery
[2025-08-10] MEDS: IBUPROFEN 600 MG TAB PO PRN (08:00)
[2025-08-10] MEDS: ACETAMINOPHEN 325 MG TAB PO PRN (08:01)
[2025-08-10 08:33] VITALS: BP 134/86; PULSE 65; TEMP 98.1; O2SAT 96
[2025-08-10] MEDS: MAGNESIUM HYDROXIDE SUSP 30 ML UDC PO PRN (10:36)
--- NOTE | 2025-08-11 12:56 | Discharge Summary ---
Date of Service August 11, 2025 Admission HPI Per Admitting Provider Patient is a 34yowf with iup at 39 0/7 who presents with srom of clear fluid at 6:45 am. Notes some contractions. no vb. +fm. Patient has had no associated issues and no problem/plans list OB Labs: Blood Type O Positive 01/08/25 Antibody Screen NEGATIVE 01/08/25 Hgb 12.5 g/dl (12.0-16.0) 05/28/25 Hct 36.4 % (37.0-47.0) L 05/28/25 MCV 92.6 fL (80.0-100.0) 01/08/25 Plt Count 250 K/uL (130-400) 01/08/25 Rubella IgG Antibody Immune (Immune) 01/08/25 Treponema pallidum Ab Negative (Negative) 05/28/25 Hep Bs Antigen Negative (Negative) 01/08/25 Hepatitis C Antibody Negative (Negative) 01/08/25 HIV 1&2 Ab/P24 Ag 4thGn Negative (Negative) 01/08/25 Glucose 1 Hr 50 gm 108 mg/dl (70-130) 05/28/25 Maternal Serum AFP 76.7 ng/mL 03/05/25 OB Optional Labs: Chlamydia trachomatis RNA Not Detected (NotDetected) 01/08/25 Neisseria gonorrhoeae RNA Not Detected (NotDetected) 01/08/25 Alpha Fetoprotein Triple Screen SEE NOTE 03/05/25 Labs Reviewed: gbs neg afp neg panorama neg Discharge Data Consultations 08/07/25 09:36 Consult Anesthesiology Stat Procedures Performed Operation Date: 08/08/25 00:30 Actual Procedures p Primary Section. Live girl @ 0100 - Shayna Alfonso MD, FACOG Hospital Course (1) care and examination: (2) Failure of descent in labor, delivered, current hospitalization: Plan Patient admitted for labor. Got epidural and pitocin augmentation. Progressed to c/c/+2. Pushed for a total of 2.5 hours and did not move fetus. Underwent primarly ltcs to delivery a viable baby in DOP. QBL--543cc Postop/ course was uncomplicated--dave regular diet, ambulated, perry removed and voided, pain controlled with oral pain meds. d/c home on POD2. d/c h/h 8.5/26.4. f/u in 6 weeks. Coding Level of Care Code None Diagnoses care and examination Z39.2 Failure of descent in labor, delivered, current hospitalization O62.2
== END 2025-08-10 11:09 | disposition home or self-care (01) | DRG 788 ==
LOC: OPB 08:24 → 4S1 08:29 → 4E2 08-08 04:42